=== PATIENT | male | born 1985 ===

== ENCOUNTER 2019-05-12 07:32 | Emergency (ER) | payer SELFPAY ==
--- NOTE | 2019-05-12 09:01 | ER Document Report ---
Entered by TREY LEI SCRIBE 05/12/19 0816 Acting as scribe for:SUZAN HUDDLESTON MD ED Psych Disorder / Suicide - General Mode of Arrival: Ambulatory Information source: Patient Cannot obtain history due to: Uncooperative <SUZAN HUDDLESTON - Last Filed: 05/12/19 14:59> <RICHARD LOW - Last Filed: 05/13/19 11:57> <SHYANN DIAZ - Last Filed: 05/13/19 12:57> - General Stated Complaint: PSYCH EVAL Time Seen by Provider: 05/12/19 08:08 Primary Care Provider: [facility] [Outside] - Follow up in 3-5 days [facility] [Outside] - Follow up as needed Notes: Patient is a 34-year-old male that presents to the emergency department on IVC paperwork from [facility]. IVC paperwork states "Respondent is experiencing suicidal ideations with a plan to run into traffic. Respondent reports that he has nothing to live for and found out that his is having an affair." Patient is very uncooperative and confrontational so it is not possible to obtain any meaningful history. The history that can be obtained from him is that he called 911 to take him to the [facility]. Patient states after he got to [place] he felt "uncomfortable" so he "called the police to have him taken to a hospital". (SUZAN HUDDLESTON) - Related Data Allergies/Adverse Reactions: No Known Allergies Allergy (Verified 05/12/19 10:47) Past Medical History - General Cannot obtain history due to: Uncooperative - Social History Smoking Status: Current Every Day Smoker Cigarette use (# per day): Yes Chew tobacco use (# tins/day): No Smoking Education Provided: No Frequency of alcohol use: Heavy Drug Abuse: Methamphetamine Lives with: Spouse/Significant other Family History: Reviewed & Not Pertinent Psychiatric Medical History: Reports: Hx Bipolar Disorder Surgical Hx: Other - unknown <SUZAN HUDDLESTON - Last Filed: 05/12/19 14:59> Review of Systems - Review of Systems -: Yes ROS unobtainable due to patient's medical condition - uncooperative <SUZAN HUDDLESTON - Last Filed: 05/12/19 14:59> Physical Exam - General General appearance: Alert, Other - Hostile, confrontational, agitated, refusing to provide history - HEENT Head: Normocephalic, Atraumatic Eyes: Normal Pupils: PERRL - Respiratory Respiratory status: No respiratory distress - Cardiovascular Rhythm: Regular - Abdominal Inspection: Normal - Back Back: Normal - Extremities General upper extremity: Normal inspection General lower extremity: Normal inspection - Neurological Neuro grossly intact: Yes - Psychological Associated symptoms: Agitated, Irritable, Psychomotor agitation, Uncooperative - Skin Skin Temperature: Warm Skin Moisture: Dry Skin Color: Normal <SUZAN HUDDLESTON - Last Filed: 05/12/19 14:59> - Vital signs Vitals: Temp Pulse Resp BP Pulse Ox 97.9 F 96 16 149/82 H 98 05/12/19 07:34 05/12/19 07:34 05/12/19 07:34 05/12/19 07:34 05/12/19 07:34 Course - Laboratory Result Diagrams: 05/12/19 08:30 05/12/19 08:30 <SUZAN HUDDLESTON - Last Filed: 05/12/19 14:59> - Laboratory Result Diagrams: 05/12/19 08:30 05/12/19 08:30 <RICHARD LOW - Last Filed: 05/13/19 11:57> - Laboratory Result Diagrams: 05/12/19 08:30 05/12/19 08:30 <SHYANN DIAZ - Last Filed: 05/13/19 12:57> - Re-evaluation Re-evalutation: 05/12/19 09:01 Patient was escorted to the restroom by the [facility] officer to change his close. While he was in the restroom he lit up a cigarette and began smoking. 05/12/19 14:57 The patient is currently sleeping has been for quite some time. I suspect the alcohol or drugs or wearing off and that is why he is now sound asleep. (SUZAN HUDDLESTON) 05/13/19 12:45 Chart reviewed, patient interviewed, patient reports she is feeling much better. Patient currently denies any SI or HI. Per recommendation of psychiatric team, patient cleared for mental health services, Dr. Stacy cleared patient for discharge and rescinded IVC paperwork. (JOE,SHYANN C) - Vital Signs Vital signs: Temp Pulse Resp BP Pulse Ox 97.9 F 69 18 125/72 97 05/13/19 06:20 05/13/19 06:20 05/13/19 06:20 05/13/19 06:20 05/13/19 06:20 - Laboratory Laboratory results interpreted by me: 05/12/19 05/12/19 05/13/19 08:30 08:30 06:22 Sodium 145.8 H Glucose 179 H POC Glucose 143 H Total Protein 8.3 H Albumin 5.2 H Urine Glucose (UA) >=500 H Urine Ketones TRACE H Salicylates < 1.0 L Acetaminophen < 10 L Discharge <SUZAN HUDDLESTON - Last Filed: 05/12/19 14:59> <RICHARD LOW - Last Filed: 05/13/19 11:57> <SHYANN DIAZ - Last Filed: 05/13/19 12:57> - Discharge Clinical Impression: Reactive depression (situational), Suicidal ideation, Amphetamine abuse Alcohol intoxication Qualifiers: Complication of substance-induced condition: uncomplicated Qualified Code(s): F10.920 - Alcohol use, unspecified with intoxication, uncomplicated Condition: Stable Disposition: HOME, SELF-CARE Additional Instructions: You have been evaluated by both medical and behavioral health teams and have been deemed appropriate for discharge. You have been provided a local resource list of area providers including mobile crisis contact information. Please contact your insurance company for help in identifying in network providers. You are encouraged to only take medications that are prescribed to you and not to mix medications with alcohol. DEPRESSION: Your evaluation reveals that you have mental depression. While symptoms may be vague, they often include disturbance of sleep, fatigue, loss of appetite, and general loss of interest in life. While depression may be a side effect of drugs, or a reaction to a major change in your life, many cases have no known cause. If depression is acute, and related to a major loss in your life, you can expect it to clear completely with time. If you have been depressed a long time, are prone to repeated bouts of depression or low mood, or have been thinking of suicide, get help. Depression can be treated with anti-depressant medication and counselling. Long-term depression will often take a few weeks to clear, even with appropriate medication. Follow-up care is important. SUICIDAL IDEATION: Suicidal ideation is a common medical term for thoughts about suicide, which may be as detailed as a formulated plan, without the suicidal act itself. Although most people who undergo suicidal ideation do not commit suicide, some go on to make suicide attempts. The range of suicidal ideation varies greatly from fleeting to detailed planning, role playing, and unsuccessful attempts. While thoughts about suicide are common, most people do not carry out serious actions to commit suicide. Based upon your evaluation and discussion with you, we do not believe you are currently at risk to act upon your thoughts of suicide. You have agreed to return to the Emergency Department, at any time, if you feel inclined to act upon your suicidal thoughts. ACUTE ALCOHOL INTOXICATION and ALCOHOL ABUSE: Your evaluation revealed very high levels of alcohol. You can from drinking a large amount of alcohol rapidly! Further, there's the risk of falls, traffic accidents, and fights. A high portion (about 50 percent) of the serious injuries seen in hospital emergency rooms are caused by alcohol. Alcohol overdosage is usually due to an underlying emotional or psychiatric problem. You may benefit from counselling. If "binge" drinking is an ongoing problem for you, or if you drink ANY AMOUNT of alcohol EVERY day, you most likely have a tendency to alcoholism. You should avoid alcohol totally. We can refer you for treatment. Persons with alcohol problems are often also prone to other addictions -- you should discuss any use of medications or drugs with the doctor. You should be watched at home for the next several hours by someone who has not been drinking. Get extra fluids for the next 24 hours. Call the doctor if there is repeated vomiting, increasing headache, decreasing level of alertness, or any other worsening. ALCOHOL WITHDRAWAL: Your symptoms are caused by alcohol withdrawal. After a period of frequent drinking, the brain and body are changed by the alcohol. When you quit or reduce your drinking, the nervous system becomes unstable. Withdrawal symptoms can start a few hours after your last drink, but sometimes don't begin until a couple of days later. Symptoms can include shakiness, sweating, insomnia, nausea, vomiting, fearfulness, hallucinations, and seizures. In addition to the acute effects of alcohol withdrawal, we often have to deal with the medical effects of alcoholism. These problems often include dehydration, stomach irritation, intestinal bleeding, low blood sugar, liver disease, and pancreas inflammation. Treatment for alcohol withdrawal includes mild sedatives, vitamins, and fluids. You need to be with someone who can help if symptoms become severe. Many patients can withdraw at home. Admission to the hospital or a detox facility may be necessary if withdrawal symptoms are severe and uncontrollable. Abstaining from alcohol is the only effective long-term treatment. If you start drinking again, you will not be able to control yourself after the first drink. Treatment programs are available. In addition, many alcoholics benefit from Alcoholics Anonymous or other support groups available through your counselor or advent transit proof machine operator. [facility] and [facility] are support groups for friends and family members of an alcoholic. Go to the emergency room if you develop persistent vomiting, severe a bdominal pain, fever, shortness of breath, hallucinations, uncontrollable tremors, or seizures. AMPHETAMINE / METHAMPHETAMINE ABUSE: Amphetamines are addicting stimulants. Amphetamines overstimulate the nervous system and give a false feeling of power and mastery. These drugs may be obtained as prescription pills for weight loss, narcolepsy, or attention-deficit disorder. More often they're bought as an illegal street drug, methamphetamine (crank, crystal, speed). Using amphetamines repeatedly can lead to serious medical problems including malnutrition, severe depression, and paranoia. It can take increasing amounts to feel good. Eventually, there will be a "burn out." When you go off amphetamines there is a period of depression that may last for weeks or even months. High doses of amphetamines can cause seizures, confusion, hallucinations, delusions, high blood pressure, muscle damage, heart damage, or sudden . Many times these deadly complications occur even with "normal" doses. Injection of amphetamines is risky for developing abscesses, endocarditis (heart infection), pneumonia, and AIDS. Withdrawal from amphetamines often causes anxiety, depression, and drug cravings. Some users become paranoid and psychotic. There may be cramps, nausea, and vomiting. Many treatment programs are available, but you must make the decision to quit. Medication can be prescribed to control the symptoms of amphetamine toxicity (beta blockers or benzodiazepines). Withdrawal symptoms may require tranquilizers. FOLLOW-UP CARE: If you have been referred to a physician for follow-up care, call the physicians office for an appointment as you were instructed or within the next two days. If you experience worsening or a significant change in your symptoms, notify the physician immediately or return to the Emergency Department at any time for re-evaluation. Referrals: [facility] [Outside] - Follow up as needed [facility] [Outside] - Follow up in 3-5 days Scribe Attestation: 05/12/19 09:05 I personally performed the services described in the documentation, reviewed and edited the documentation which was dictated to the scribe in my presence, and it accurately records my words and actions. (SUZAN HUDDLESTON) I personally performed the services described in the documentation, reviewed and edited the documentation which was dictated to the scribe in my presence, and it accurately records my words and actions.
[2019-05-12 09:04] LABS: ABSOLUTE EOSINOPHILS # (AUTO) 0.1 10^3/uL (0.0-0.6); ABSOLUTE LYMPHOCYTES (AUTO) 2.6 10^3/uL (0.5-4.7); ABSOLUTE MONOCYTES (AUTO) 0.5 10^3/uL (0.1-1.4); ABSOLUTE NEUT (AUTO) 5.4 10^3/uL (1.7-8.2); BASOPHILS % (AUTO) 0.3 % (0-2); EOSINOPHILS % (AUTO) 1.3 % (0-6); HEMOGLOBIN 16.8 g/dL (13.5-17.0); LYMPHOCYTES % (AUTO) 29.8 % (13-45); MEAN CORPUSCULAR HEMOGLOBIN 30.5 pg (27.0-33.4); MEAN CORPUSCULAR HGB CONC 33.6 g/dL (32.0-36.0); MEAN CORPUSCULAR VOLUME 91 fl (80-97); MONOCYTES % (AUTO) 5.6 % (3-13); PLATELET COUNT 261 10^3/uL (150-450); RED CELL DISTRIBUTION WIDTH 12.7 % (11.5-14.0); TOTAL CELLS COUNTED % (AUTO) 100 %; WHITE BLOOD COUNT 8.6 10^3/uL (4.0-10.5)
[2019-05-12 09:24] LABS: ACETAMINOPHEN < 10 ug/mL (10-30); ALBUMIN 5.2 g/dL (3.5-5.0); ALCOHOL 121 mg/dL (NONE DETECTED); ALKALINE PHOSPHATASE 86 U/L (38-126); ANION GAP 15 (5-19); ASPARTATE AMINO TRANSFERASE 31 U/L (17-59); BILIRUBIN,DIRECT 0.2 mg/dL (0.0-0.4); BILIRUBIN,TOTAL 0.3 mg/dL (0.2-1.3); BLOOD UREA NITROGEN 13 mg/dL (7-20); CALCIUM 9.9 mg/dL (8.4-10.2); CARBON DIOXIDE 25 mmol/L (22-30); CHLORIDE 106 mmol/L (98-107); GLUCOSE 179 mg/dL (75-110); POTASSIUM 4.7 mmol/L (3.6-5.0); SALICYLATE < 1.0 mg/dL (2.0-20.0); TOTAL PROTEIN 8.3 g/dL (6.3-8.2)
--- NOTE | 2019-05-12 10:23 | EKG REPORT ---
SEVERITY:- NORMAL ECG - SINUS RHYTHM : Confirmed by: Elijah Kang 12-May-2019 10:22:59
[2019-05-12 10:30] LABS: AMORPHOUS SEDIMENT,URINE 1+ /HPF; APPEARANCE,URINE TURBID; BILIRUBIN,URINE NEGATIVE (NEGATIVE); COLOR,URINE STRAW; GLUCOSE, URINE >=500 mg/dL (NEGATIVE); KETONES,URINE TRACE mg/dL (NEGATIVE); LEUKOCYTE ESTERASE,URINE NEGATIVE (NEGATIVE); NITRITE,URINE NEGATIVE (NEGATIVE); PROTEIN,URINE NEGATIVE (NEGATIVE); URINE SPECIFIC GRAVITY 1.023; UROBILINOGEN,URINE NEGATIVE mg/dL (<2.0)
[2019-05-12 10:55] LABS: URINE AMPHETAMINES SCREEN UNCONFIRMED POSITIVE; URINE BARBITURATES SCREEN NEGATIVE; URINE BENZODIAZEPINES SCREEN NEGATIVE; URINE COCAINE SCREEN NEGATIVE; URINE MARIJUANA (THC) SCREEN NEGATIVE; URINE METHADONE SCREEN NEGATIVE; URINE PHENCYCLIDINE SCREEN NEGATIVE
[2019-05-12 14:12] LABS: CHLAM PCR NOT DETECTED (NOT DETECT)
--- NOTE | 2019-05-12 15:28 | PSYCHOLOGICAL NOTE ---
Psych Note - Psych Note Date seen by psych provider: 05/12/19 Time seen by psych provider: 08:20 Psych Note: Reason for Consult: IVC Pt arrives with [employer] and signed IVC paperwork. Pt was a patient at [facility] and reports he called 911 to "be transported to another hospital" because he was feeling "trapped and like I couldn't get out of there." Pt is aaox4. speaking quickly in complete sentences. Pt denies any suicidal ideation at this time, but states that he has a history of bipolar disorder that he has not received treatment for in several years. He states he want to "get on medications." IVC paperwork submitted by [facility]. Patient reportedly presented to [facility] voluntarily for assistance for mental health. IVC paperwork states that the patient just found out his was cheating on him. Unfortunately at this time, the patient is very irritable and refuses to wake up to fully engage in evaluation. Clinician notes that patient did demonstrate significant manipulation upon immediate arrival. Patient presented very distraught about taking his piercings out as this would cause them to close. After discussing his concerns it was agreed that he can keep the piercings in. Once he was allowed to keep his piercings he stated that he was unable to take 1 of his necklaces off because it is a amish symbol. He reports it is a [place] druze. He allowed the clinician to touch the necklace; there are no noted shape edges to the rectangular stone. It was explained that if the patient would like to keep it on, it would be alright; however, if he starts pulling at it or staff see any red ellington, it would have to be removed. Patient readily agreed and confirmed he was remove all his other jewelry to include rings and necklaces. Clinician notes approximately 30 minutes later security came to clinician discussed the fact that the patient attempted to keep another necklace on stating that it was his sister's ashes. They confirm that he did remove the necklace. Clinician notes the patient did not mention concerns on a [place] other of his other jewelry, when discussing his amish symbol, or that he had his sister's ashes on him. Patient has no documented medical History Patient has no documented Psychiatric History Patient has no Home medications reconciled Patient currently has an EOTH of 121 and Toxicology screening indicating amphetamines Clinician contacted [facility]; they have no further information to provide in regards to the patient. Patient does not have any belongings left in their facility. He did not have any identification on him upon arrival to their facility and all they had was his name and birthdate. Impression/Plan: Patient is recommended to continue under IVC petition as he is unable to fully engage in evaluation. Patient will be reevaluated tomorrow upon sobriety. Dr. Anna was consulted to care management of this patient; attending physicians in agreement with recommendations and disposition.
[2019-05-13 13:02] VITALS: BP 118/67
== END 2019-05-13 13:03 | disposition home or self-care (01) ==
LOC: ER 07:32
DX: F32.89 Other specified depressive episodes (principal); F15.10 Other stimulant abuse, uncomplicated; F17.210 Nicotine dependence, cigarettes, uncomplicated; F10.920 Alcohol use, unspecified with intoxication, uncomplicated; R45.851 Suicidal ideations; Y90.6 Blood alcohol level of 120-199 mg/100 ml
CPT/HCPCS: 36415; 80053; 80307; 81001; 82962; 85025; 87086; 87491; 87591; 93005; 93010